=== PATIENT | male | born 1960 | race Caucasian/White ===

== ENCOUNTER → 2024-11-14 | Outpatient (CLI) | payer MEDICARE, MEDICAID, SELFPAY ==
--- NOTE | 2024-11-14 09:08 | XR_ITS ---
Examination: AP lateral chest 2 views TECHNIQUE: Upright AP lateral chest 2 views Exam date and time: November 14, 2024 0925 hours INDICATIONS: Coughing one month. FINDINGS: Normal heart size Cardiac leads satisfactory position Accentuation basilar bronchovascular markings No lobar pneumonia IMPRESSION: Basilar bronchitis pattern
--- NOTE | 2024-11-14 09:08 | XR_ITS ---
Examination: Esophagram standard Upright PA chest single view Upright soft tissue lateral neck single view 36 spot fluoroscopic films of the esophagus Fluoroscopy Exam date and time: November 14, 2024 0915 hours INDICATIONS: Fluid aspiration beginning one month ago. 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
== END | disposition home or self-care (01) ==
PROVIDERS: PCP Nurse Practitioner Family; Referring Provider Nurse Practitioner Family; Visit Provider Nurse Practitioner Family
DX: K21.9 Gastro-esophageal reflux disease without esophagitis (principal); K22.89 Other specified disease of esophagus; R05.9 Cough, unspecified
CPT/HCPCS: 71046; 74220; A4699